=== PATIENT | female | born 1970 | race Caucasian/White ===

== ENCOUNTER → 2017-12-30 | Outpatient (CLI) | payer OTHER ==
--- NOTE | 2017-12-31 14:00 | ECHOF ---
Referral Reason:R01.1 Cardiac Murmur MEASUREMENTS -------- HEIGHT: 162.6 cm WEIGHT: 87.1 kg BP: RVIDd: 2.9 cm (< 3.3) IVSd: 1.3 cm (0.6 - 1.1) LVIDd: 3.4 cm (3.9 - 5.3) LVPWd: 1.2 cm (0.6 - 1.1) IVSs: 1.6 cm LVIDs: 1.6 cm LVPWs: 1.4 cm LAESV Index (A-L): 13.77 ml/m Ao Diam: 3.4 cm (2.0 - 3.7) AV Cusp: 2.0 cm (1.5 - 2.6) LA Diam: 2.0 cm (2.7 - 3.8) MV EXCURSION: 15.510 mm (> 18.000) MV EF SLOPE: 131 mm/s (70 - 150) EPSS: 0.5 cm MV E Jeffy: 1.02 m/s MV DecT: 219 ms MV A Jeffy: 0.59 m/s MV E/A Ratio: 1.71 RAP: 5.00 mmHg RVSP: 24.59 mmHg FINDINGS -------- Sinus rhythm. This was a technically adequate study. The left ventricular size is normal. There is mild concentric left ventricular hypertrophy. Overa ll left ventricular systolic function is normal with, an EF between 55 - 60 %. The right ventricle is normal in size and function. Normal LA size by volume 22+/-6 ml/m2. The right atrium is normal in size. The aortic valve is trileaflet, and appears structurally normal. No aortic stenosis or regurgitation. The mitral valve is normal. There is trace to mild mitral regurgitation. Trace tricuspid regurgitation present. Right ventricular systolic pressure is normal at < 35 mmHg. There is no evidence of pulmonary hypertension. The pulmonic valve was not well visualized. The aortic root size is normal. Normal inferior vena cava with normal inspiratory collapse consistent with estimated right atrial pre ssure of 5 mmHg. There is no pericardial effusion. CONCLUSIONS -------- 1. Sinus rhythm. 2. This was a technically adequate study. 3. The left ventricular size is normal. 4. There is mild concentric left ventricular hypertrophy. 5. Overall left ventricular systolic function is normal with, an EF between 55 - 60 %. 6. Normal LA size by volume 22+/-6 ml/m2. 7. The aortic valve is trileaflet, and appears structurally normal. No aortic stenosis or regurgitati on. 8. There is trace to mild mitral regurgitation. 9. Trace tricuspid regurgitation present. 10. Right ventricular systolic pressure is normal at < 35 mmHg. 11. There is no evidence of pulmonary hypertension. 12. The pulmonic valve was not well visualized. 13. The aortic root size is normal. 14. There is no pericardial effusion. [employer]: Toi Alvarado RDCS
== END | disposition home or self-care (01) ==
LOC: RADECHMAIN 15:42
PROVIDERS: ATTEND Family Medicine
DX: I51.7 Cardiomegaly (principal)
CPT/HCPCS: 93306

== ENCOUNTER → 2018-10-21 | Outpatient (CLI) | payer OTHER ==
--- NOTE | 2018-10-21 07:25 | US ---
EXAMINATION TYPE: US thyroid st tissue head/neck DATE OF EXAM: 10/21/2018 COMPARISON: NONE CLINICAL HISTORY: R09.89 Sensation of foreign body in throat. GLAND SIZE: Right Lobe: 4.5 x 1.6 x 1.6 cm Overall Parenchyma: homogenous Left Lobe: 3.6 x 1.6 x 1.4 cm Overall Parenchyma: homogeneous Isthmus Thickness: 0.3 cm NODULES RIGHT: # of nodules measured on right: 0 LEFT: # of nodules measured on left: 0 ISTHMUS: # of nodules measured in the isthmus: 0 Bilateral neck scanned, no evidence of lymphadenopathy. Normal thyroid ultrasound. IMPRESSION: No distinct abnormality appreciated.
== END | disposition home or self-care (01) ==
LOC: RADUSWWP 06:42
PROVIDERS: ATTEND Family Medicine
DX: R09.89 Other specified symptoms and signs involving the circulatory and respiratory systems (principal)
CPT/HCPCS: 76536

== ENCOUNTER → 2019-07-26 | Outpatient (CLI) | payer OTHER ==
--- NOTE | 2019-07-26 08:42 | US ---
EXAMINATION TYPE: US renals and bladder DATE OF EXAM: 07/26/2019 COMPARISON: NONE CLINICAL HISTORY: R31.0 hematuria. Hematuria EXAM MEASUREMENTS: Right Kidney: 10.2 x 4.0 x 4.5 cm Left Kidney: 11.0 x 5.8 x 4.9 cm Right Kidney: No hydronephrosis or masses seen Left Kidney: No hydronephrosis or masses seen Bladder: wnl Bilateral Jets seen: Yes IMPRESSION: 1. Normal renal ultrasound
== END | disposition home or self-care (01) ==
LOC: RADUSMAIN 07:50
PROVIDERS: ATTEND Urology
DX: R31.0 Gross hematuria (principal); Z88.1 Allergy status to other antibiotic agents; Z88.2 Allergy status to sulfonamides; Z91.040 Latex allergy status
CPT/HCPCS: 76770

== ENCOUNTER → 2019-08-14 | Outpatient (CLI) | payer OTHER ==
[2019-08-14 12:28] LABS: HCT 46.1 % (34.0-46.0); HGB 15.1 gm/dL (11.4-16.0); MCHC 32.7 g/dL (31.0-37.0); MCV 88.5 fL (80.0-100.0); Mean Platelet Volume 8.1; Platelet Count 199 k/uL (150-450); RBC 5.21 m/uL (3.80-5.40); RDW 12.6 % (11.5-15.5); WBC 6.6 k/uL (3.8-10.6)
[2019-08-14 12:41] LABS: Appearance,Urine Clear (Clear); Bilirubin,Urine Negative (Negative); Blood,Urine Negative (Negative); Color,Urine Colorless; Glucose,Urine (UA) Negative (Negative); Ketones,Urine Negative (Negative); Leukocyte Esterase,Urine Negative (Negative); Nitrite,Urine Negative (Negative); PH, Urine 6.5 (5.0-8.0); Protein,Urine Negative (Negative); Specific Gravity,Urine 1.004 (1.001-1.035); Urobilinogen,Urine <2.0 mg/dL (<2.0)
[2019-08-14 20:26] LABS: Microalbumin Creatinine Ratio <30 mg/g Creat (0-30); Urine Creatinine 11.2 mg/dL
[2019-08-14 21:04] LABS: % Iron Saturation 22.32 (12.00-45.00); African American GFR (CKD) 116.3 (60.0-200.0); Albumin 4.4 g/dL (3.80-4.90); Albumin/Globulin Ratio 2.32 (1.60-3.17); Anion Gap 11.6 mmol/L (4.00-12.00); BUN/Creat Ratio 17.14 Ratio (12.00-20.00); Calcium 9.4 mg/dL (8.7-10.3); Carbon Dioxide 25.4 mmol/L (21.6-31.8); Globulin 1.9 g/dL (1.6-3.3); Magnesium 1.9 mg/dL (1.5-2.4); Non-African American GFR(CKD) 100.3 (60.0-200.0); Phosphorus 3.5 mg/dL (2.4-5.1); Total Bilirubin 0.4 mg/dL (0.3-1.2); Total Protein 6.3 g/dL (6.2-8.2)
[2019-08-14 21:13] LABS: Ferritin 41.4 ng/mL (10.0-291.0)
== END | disposition home or self-care (01) ==
LOC: LABWHC1 11:05
PROVIDERS: ATTEND Internal Medicine
DX: E87.6 Hypokalemia (principal); D64.9 Anemia, unspecified; N39.0 Urinary tract infection, site not specified; E55.9 Vitamin D deficiency, unspecified; R80.9 Proteinuria, unspecified
CPT/HCPCS: 36415; 80053; 81003; 82043; 82306; 82570; 82728; 83540; 83550; 83735; 84100; 84133; 85027

== ENCOUNTER → 2021-04-28 | Outpatient (CLI) | payer OTHER ==
--- NOTE | 2021-04-28 11:48 | US ---
EXAMINATION TYPE: US duplex aorta DATE OF EXAM: 04/28/2021 COMPARISON: NONE CLINICAL HISTORY: Z82.49 family history. HTN, DM EXAM MEASUREMENTS: Abdominal Aorta: Proximal: 2.3 x 2.0 cm Mid: 1.9 x 1.5 cm Distal: 1.4 x 1.4 cm Bifurcation: Rt 0.9 x 0.9 cm Lt 0.9 x 0.8 cm No AAA Seen IMPRESSION: No sonographic evidence for abdominal aortic aneurysm.
== END | disposition home or self-care (01) ==
LOC: RADUSWWP 08:00
PROVIDERS: ATTEND Family Medicine
DX: Z09 Encounter for follow-up examination after completed treatment for conditions other than malignant neoplasm (principal); Z82.49 Family history of ischemic heart disease and other diseases of the circulatory system
CPT/HCPCS: 93979

== ENCOUNTER → 2021-07-30 | Outpatient (CLI) | payer OTHER ==
--- NOTE | 2021-07-30 11:03 | US ---
EXAMINATION TYPE: US extremity nonvasc mass RT DATE OF EXAM: 07/30/2021 COMPARISON: NONE CLINICAL HISTORY: R22.41 localized swelling, mass, lump. Patient states feeling a small lump in the r ight lateral popliteal fossa. Patient has hx of lipomas. No abnormal findings seen on today's exam to explain small lump felt by patient. IMPRESSION: 1. No suspicious ultrasound abnormality by ultrasound at the palpable region of the popliteal fossa.
== END | disposition home or self-care (01) ==
LOC: RADUSWWP 10:33
PROVIDERS: ATTEND Family Medicine
DX: R22.41 Localized swelling, mass and lump, right lower limb (principal)

== ENCOUNTER → 2021-08-02 | Outpatient (CLI) | payer OTHER ==
[2021-08-02 17:37] LABS: Rheumatoid Factor, Qnt <10 IU/mL (0-15)
[2021-08-04 10:02] LABS: HLA B27 NEGATIVE
[2021-08-04 11:17] LABS: Angiotensin-1 Converting Enz. 32 U/L (8-52)
== END | disposition home or self-care (01) ==
LOC: LABWHC1 09:17
PROVIDERS: ATTEND Ophthalmology
DX: H15.009 Unspecified scleritis, unspecified eye (principal)
CPT/HCPCS: 36415; 82164; 85549; 85652; 86038; 86140; 86431; 86812